=== PATIENT | male | born 1995 | race Caucasian/White ===

== ENCOUNTER 2016-08-13 23:19 | Emergency (ER) | payer OTHER ==
[2016-08-13 23:43] VITALS: BMI 32.5
[2016-08-14] MEDS ORDERED: CEPHALEXIN MONOHYDRATE 500 MG CAPSULE (UD) PO ONE (02:01)
--- NOTE | 2016-08-14 02:11 | PDOC ---
History of Present Illness - General Chief Complaint: Abscess Boil Stated Complaint: PAIN Time Seen by Provider: 08/14/16 01:18 History Source: Patient Exam Limitations: No Limitations - History of Present Illness Initial Comments: 08/14/16 02:02 Patient is a 21 year old male with seasonal allergies c/o a painful swelling to the right posterior thigh. States he has had a skin tag on his right thigh for about 1.5 years but started getting bigger about 6 months ago. Now for 1 week has been painful and having a discharge. Pain is 7/10 joby if he sits on it or move. States that he was told to tie it off which he did but the pain worsened. PMHX: as above PSOCHx: neg PFamHx: noncontributory ALL: NKDA GENERAL/CONSTITUTIONAL: [No fever or chills. No weakness. No weight change.] HEAD, EYES, EARS, NOSE AND THROAT: [No change in vision. No ear pain or discharge. No sore throat.] CARDIOVASCULAR: [No chest pain or shortness of breath.] RESPIRATORY: [No cough, wheezing, or hemoptysis.] GASTROINTESTINAL: [No nausea, vomiting, diarrhea or constipation. No rectal bleeding.] GENITOURINARY: [No dysuria, frequency, or change in urination.] MUSCULOSKELETAL: [No joint or muscle swelling or pain. No neck or back pain.] SKIN AND BREASTS: [No rash or easy bruising.] NEUROLOGIC: [No headache, vertigo, loss of consciousness, or loss of sensation.] PSYCHIATRIC: [No depression or anxiety.] ENDOCRINE: [No increased thirst. No abnormal weight change.] HEMATOLOGIC/LYMPHATIC: [No anemia, easy bleeding, or history of blood clots.] ALLERGIC/IMMUNOLOGIC: [No hives or skin allergy. No latex allergy.] GENERAL: [The patient is awake, alert, and fully oriented, in no acute distress. ] HEAD: [Normal with no signs of trauma.] EYES: [Pupils equal, round and reactive to light, extraocular movements intact, sclera anicteric, conjunctiva clear.] ENT: [Ears normal, nares patent, oropharynx clear without exudates. Moist mucous membranes.] NECK: [Normal range of motion, supple without lymphadenopathy, JVD, or masses.] LUNGS: [Breath sounds equal, clear to auscultation bilaterally. No wheezes, and no crackles.] HEART: [Regular rate and rhythm, normal S1 and S2 without murmur, rub.] ABDOMEN: [Soft, nontender, normoactive bowel sounds. No guarding, no rebound. No masses.] EXTREMITIES: [Normal range of motion, no edema. No clubbing or cyanosis. No cords, erythema, or tenderness.] NEUROLOGICAL: [Cranial nerves II through XII grossly intact. Normal speech, normal gait.] PSYCH: [Normal mood, normal affect.] SKIN: Large 4x 3 spetated lesion on a stalk hanging from the posterior aspect of the right thigh, small amount of serous sanguineous fluids from the lesion with some necrotic areas. surrounding erythema and tenderness to the thigh around the stalk. Past History - Past Medical History Allergies/Adverse Reactions: Allergies Allergy/AdvReac Type Severity Reaction Status Date / Time No Known Allergies Allergy Verified 08/13/16 23:43 Home Medications: Ambulatory Orders Cephalexin [Keflex Oral Suspension -] 500 mg PO Q6HPO #28 ml 08/14/16 Kidney Stones: Yes - Immunization History Immunization Up to Date: Yes - Psycho/Social/Smoking Cessation Hx Anxiety: No Suicidal Ideation: No Smoking History: Never smoked Hx Alcohol Use: No Drug/Substance Use Hx: No Substance Use Type: None *Physical Exam - Vital Signs Last Vital Signs Temp Pulse Resp BP Pulse Ox 98 F 91 H 18 148/79 99 08/13/16 23:41 08/13/16 23:41 08/13/16 23:41 08/13/16 23:41 08/13/16 23:41 Medical Decision Making - Medical Decision Making 08/14/16 02:11 Chase is as 21 year old male with h/o seasonal allergies c/o pain and discharge and a lesion to the the right thigh. The area around the lesion is erythemaous and with warmth and tender to palpation, suspect cellulitis. Keflex 500 mg po. will refer to surgery I discussed the physical exam findings, ancillary test results and final diagnoses with the patient. I answered all of the patient's questions. The patient was satisfied with the care received and felt comfortable with the discharge plan and treatment plan. The Patient agrees to follow up with the primary care physician within 24-72 hours. *DC/Admit/Observation/Transfer Diagnosis at time of Disposition: Skin lesion Cellulitis Qualifiers: Site of cellulitis: extremity Site of cellulitis of extremity: lower extremity Laterality: right Qualified Code(s): L03.115 - Cellulitis of right lower limb - Discharge Dispostion Disposition: HOME Condition at time of disposition: Stable - Prescriptions Prescriptions: Cephalexin [Keflex Oral Suspension -] 500 mg PO Q6HPO #28 ml - Referrals Referrals: Tash Mendez [Primary Care Provider] - Moshe Mackey MD [Staff Physician] - - Patient Instructions Printed Discharge Instructions: DI for Skin Lesion Removal Additional Instructions: Your Discharge Instructions: You must call primary care physician within 24 hours to arrange follow-up. Return to the Emergency Department with any new, persistent or worsening symptoms, for fever, chills, SOB, dizziness or any other concerning changes that may occur.
[2016-08-14] MEDS ORDERED: CEPHALEXIN MONOHYDRATE 250 MG CAPSULE (FP) ONE (02:16)
[2016-08-14 02:48] VITALS: BP 135/83; PULSE 86; TEMP 97.9
== END 2016-08-14 02:48 | disposition home or self-care (01) ==
LOC: JER 23:19
DX: L03.115 Cellulitis of right lower limb (principal); J30.2 Other seasonal allergic rhinitis; Z87.442 Personal history of urinary calculi
CPT/HCPCS: 99282-25

== ENCOUNTER 2020-05-12 14:11 | Emergency (ER) | payer OTHER ==
[2020-05-12 14:25] VITALS: BP 149/88; PULSE 85; BMI 31.7
== END 2020-05-12 15:50 | disposition home or self-care (01) ==
LOC: JERFT 14:11
DX: A64 Unspecified sexually transmitted disease (principal)
CPT/HCPCS: 36415; 86780; 87491; 87591; 99283-25

== ENCOUNTER 2020-06-02 21:18 | Emergency (ER) | payer OTHER ==
[2020-06-02 21:35] VITALS: BP 125/81; PULSE 85; TEMP 98.4; BMI 31.6
== END 2020-06-02 23:07 | disposition home or self-care (01) ==
LOC: JER 21:18
DX: A64 Unspecified sexually transmitted disease (principal); L30.9 Dermatitis, unspecified; L98.8 Other specified disorders of the skin and subcutaneous tissue
CPT/HCPCS: 99283-25

== ENCOUNTER 2022-07-12 03:35 | Emergency (ER) | payer OTHER ==
[2022-07-12 03:41] VITALS: BP 136/77; PULSE 70; RESP 18; TEMP 97.7; BMI 29.8
== END 2022-07-12 07:46 | disposition home or self-care (01) ==
LOC: JERFT 03:35 → JER 03:35 → JERFT 07:46
PROC: 0H9EXZZ Drainage of Left Lower Arm Skin, External Approach (ICD-10-PCS; principal; 2022-07-12)
DX: L02.414 Cutaneous abscess of left upper limb (principal)
CPT/HCPCS: 99283-25

== ENCOUNTER 2022-07-13 06:18 | Emergency (ER) | payer OTHER ==
[2022-07-13 06:21] VITALS: BMI 29.8
[2022-07-13] MEDS ORDERED: SODIUM CHLORIDE 1,000 ML IV STA ×2 (07:26→08:40)
[2022-07-13] MEDS ORDERED: ONDANSETRON 4 MG/2 ML VIAL IVPUSH ONE (07:29)
[2022-07-13] MEDS ORDERED: LORazepam 1 MG TABLET PO ONE (07:33)
[2022-07-13] MEDS ORDERED: ONDANSETRON 4 MG/2 ML VIAL ONE (07:43)
[2022-07-13 08:12] LABS: BASO % 0.5 % (0-2.0); EOS % 1.4 % (0-4.5); HEMATOCRIT 42.9 % (35.4-49); HEMOGLOBIN 14.4 GM/dL (11.7-16.9); LYMPH % 38.4 % (8-40); MCHC 33.6 g/dl (32.0-35.9); MEAN CELL VOLUME 80.2 fl (80-96); MONO % 9.3 % (3.8-10.2); NEUT % 50.4 % (42.8-82.8); PLATELET COUNT 228 10^3/uL (134-434); RBC 5.35 M/mm3 (4.00-5.60); RDW 13.9 % (11.9-15.9); WHITE BLOOD COUNT 8.3 K/mm3 (4.0-10.0)
[2022-07-13 08:15] LABS: ALBUMIN 3.7 g/dl (3.4-5.0); BLOOD UREA NITROGEN 11.2 mg/dL (7-18); CALCIUM 9.1 mg/dL (8.5-10.1)
[2022-07-13 08:18] LABS: CREATININE 1.2 mg/dL (0.55-1.3)
[2022-07-13 08:19] LABS: INR 1.1 (0.83-1.09); PROTHROMBIN TIME (PATIENT) 12.7 SEC (9.7-13.0)
[2022-07-13 08:20] LABS: BILIRUBIN,TOTAL 0.4 mg/dL (0.2-1); TOT PROT 7.8 g/dl (6.4-8.2)
[2022-07-13 08:22] LABS: ACTIVATED PTT 29.2 SECONDS (25.2-36.5)
[2022-07-13] MEDS ORDERED: LORazepam 1 MG TABLET ONE (08:44)
[2022-07-13 09:36] VITALS: BP 118/71; PULSE 88; RESP 20; TEMP 98.1
[2022-07-13 09:36] LABS: URINE APPEARANCE CLEAR; URINE BILIRUBIN NEGATIVE (NEGATIVE); URINE COLOR YELLOW; URINE GLUCOSE (UA) NEGATIVE (NEGATIVE); URINE KETONE NEGATIVE (NEGATIVE); URINE LEUK ESTERASE NEGATIVE (NEGATIVE); URINE NITRITE NEGATIVE (NEGATIVE); URINE PROTEIN NEGATIVE (NEGATIVE); URINE UROBILINOGEN 0.2 mg/dL (0.2-1.0)
[2022-07-13 11:56] LABS: COCAINE, UR NEGATIVE (NEGATIVE); METHADONE, UR NEGATIVE (NEGATIVE); OPIATES, URI NEGATIVE (NEGATIVE)
[2022-07-13 11:57] LABS: PHENCYCLIDINE,URINE NEGATIVE (NEGATIVE)
[2022-07-13 11:58] LABS: URINE AMPHETAMINES NEGATIVE (NEGATIVE)
[2022-07-13 12:15] LABS: URINE BARBITURATES NEGATIVE (NEGATIVE); URINE BENZODIAZEPINES NEGATIVE (NEGATIVE)
== END 2022-07-13 10:29 | disposition home or self-care (01) ==
LOC: JER 06:18
PROC: 3E0333Z Introduction of Anti-inflammatory into Peripheral Vein, Percutaneous Approach (ICD-10-PCS; principal; 2022-07-13)
PROC: 3E0333Z Introduction of Anti-inflammatory into Peripheral Vein, Percutaneous Approach (ICD-10-PCS; 2022-07-13)
PROC: 3E0333Z Introduction of Anti-inflammatory into Peripheral Vein, Percutaneous Approach (ICD-10-PCS; 2022-07-13)
DX: F12.988 Cannabis use, unspecified with other cannabis-induced disorder (principal); R11.2 Nausea with vomiting, unspecified
CPT/HCPCS: 36415; 80053; 80307; 81003; 85025; 85610; 85730; 93005; 93010; 99284-25

== ENCOUNTER 2022-10-20 01:26 | Emergency (ER) | payer OTHER ==
[2022-10-20 01:50] VITALS: BP 145/77; PULSE 67; RESP 20; TEMP 98.1; BMI 30.5
[2022-10-20 02:49] LABS: URINE APPEARANCE CLEAR; URINE BILIRUBIN NEGATIVE (NEGATIVE); URINE COLOR YELLOW; URINE GLUCOSE (UA) NEGATIVE (NEGATIVE); URINE KETONE NEGATIVE (NEGATIVE); URINE LEUK ESTERASE NEGATIVE (NEGATIVE); URINE NITRITE NEGATIVE (NEGATIVE); URINE PROTEIN NEGATIVE (NEGATIVE); URINE UROBILINOGEN 0.2 mg/dL (0.2-1.0)
== END 2022-10-20 03:58 | disposition left against medical advice (07) ==
LOC: JER 01:26
DX: N28.9 Disorder of kidney and ureter, unspecified (principal); R82.998 Other abnormal findings in urine
CPT/HCPCS: 81003; 87086; 99283-25

== ENCOUNTER 2022-12-23 02:33 | Emergency (ER) | payer OTHER ==
[2022-12-23 02:37] VITALS: BP 139/83; PULSE 64; RESP 18; TEMP 97.8; BMI 32.1
[2022-12-23] MEDS ORDERED: diphenhydrAMINE HCL 25 MG CAPSULE (FP) PO ONE ×2 (05:25→05:30)
== END 2022-12-23 05:35 | disposition home or self-care (01) ==
LOC: JER 02:33
DX: F41.9 Anxiety disorder, unspecified (principal); R00.2 Palpitations; R06.02 Shortness of breath
CPT/HCPCS: 71045-TC-FY; 93005; 93010; 99284-25

== ENCOUNTER 2023-02-16 01:16 | Emergency (ER) | payer OTHER ==
[2023-02-16 01:23] VITALS: BP 128/82; PULSE 78; RESP 18; TEMP 98.2; BMI 31.1
[2023-02-16 03:09] LABS: BASO % 0.8 % (0-2.0); EOS % 1.2 % (0-4.5); HEMATOCRIT 45.8 % (35.4-49); HEMOGLOBIN 15.6 GM/dL (11.7-16.9); LYMPH % 21.3 % (8-40); MCH 27.2 pg (25.7-33.7); MCHC 34.1 g/dl (32.0-35.9); MEAN CELL VOLUME 79.7 fl (80-96); MEAN PLT VOLUME 8.9 fl (7.5-11.1); MONO % 8.3 % (3.8-10.2); NEUT % 68.4 % (42.8-82.8); PLATELET COUNT 230 10^3/uL (134-434); RBC 5.75 M/mm3 (4.00-5.60); RDW 13.4 % (11.9-15.9); WHITE BLOOD COUNT 9.6 K/mm3 (4.0-10.0)
[2023-02-16 03:16] LABS: INR 1.14 (0.83-1.09); PROTHROMBIN TIME (PATIENT) 13.2 SEC (9.7-13.0)
[2023-02-16 03:19] LABS: ACTIVATED PTT 32.2 SECONDS (25.2-36.5)
[2023-02-16 03:28] LABS: POTASSIUM 3.7 mmol/L (3.5-5.1)
[2023-02-16 03:30] LABS: CALCIUM 9.2 mg/dL (8.5-10.1)
[2023-02-16 03:31] LABS: BLOOD UREA NITROGEN 11.5 mg/dL (7-18)
[2023-02-16 03:34] LABS: CREATININE 1.1 mg/dL (0.55-1.3); PHOSPHOROUS 3.2 mg/dL (2.5-4.9)
[2023-02-16 03:35] LABS: TOT PROT 7.7 g/dl (6.4-8.2)
[2023-02-16 03:36] LABS: BILIRUBIN,TOTAL 0.3 mg/dL (0.2-1)
[2023-02-16 04:58] LABS: URINE APPEARANCE CLEAR; URINE BILIRUBIN NEGATIVE (NEGATIVE); URINE COLOR YELLOW; URINE GLUCOSE (UA) NEGATIVE (NEGATIVE); URINE KETONE NEGATIVE (NEGATIVE); URINE LEUK ESTERASE NEGATIVE (NEGATIVE); URINE NITRITE NEGATIVE (NEGATIVE); URINE PROTEIN NEGATIVE (NEGATIVE); URINE UROBILINOGEN 0.2 mg/dL (0.2-1.0)
[2023-02-16 05:00] LABS: EPI CELLS 0 /uL (0-25.1); HYALINE CASTS 0 /uL (0-3.1); URINE BACTERIA 1 /uL (0-1359); URINE RBC 3 /uL (0-23.9); URINE WBC 2 /uL (0-25.8)
== END 2023-02-16 05:13 | disposition home or self-care (01) ==
LOC: JER 01:16
DX: R00.2 Palpitations (principal); R30.0 Dysuria; R36.9 Urethral discharge, unspecified; R11.0 Nausea; R07.9 Chest pain, unspecified
CPT/HCPCS: 36415; 71046-TC-FY; 80053; 81003; 83735; 84100; 84439; 84443; 84484; 85025; 85610; 85730; 87086; 87491; 87591; 93005; 93010; 99285-25